=== PATIENT | male | born 2000 | race Caucasian/White ===

== ENCOUNTER 2020-11-01 18:48 | Emergency (ER) | payer OTHER, SELFPAY ==
--- NOTE | ~2020-11-01 | XR_ITS ---
EXAMINATION: RIGHT ANKLE 3 VIEWS CLINICAL INFORMATION: Right ankle pain following rolling injury. COMPARISON: None. TECHNIQUE: AP, lateral, oblique views of the right ankle were obtained. FINDINGS: There are no fractures or dislocations. There is mild soft tissue swelling overlying the lateral malleolus. No ankle joint effusion is identified. XR/XR ankle RT 2V IMPRESSION: Mild soft tissue swelling without fracture or dislocation.
[2020-11-01 20:38] VITALS: BP 133/60; PULSE 76; RESP 18; TEMP 36.4; O2SAT 98; BMI 28.7
[2020-11-01 22:04] VITALS: BP 124/43; PULSE 65; RESP 18; O2SAT 99
--- NOTE | 2020-11-01 22:46 | ED_ITS ---
HPI - Extremity Injury (Lower) General Chief Complaint: Extremity Injury, Lower Stated Complaint: ankle pain Source: patient Mode of arrival: ambulatory Limitations: no limitations History of Present Illness HPI Narrative: 19-year-old male with no significant past medical history presents with right ankle pain and swelling after rolling it yesterday while at work. He has been applying ice and use some Motrin with poor effect, states the swelling and the pain is prevented him from walking properly. Does not describe any other injury and has no other complaint. MD complaint: ankle injury Onset (ago): day(s) (1) Type of Injury: inversion Place: work Severity: moderate Severity scale (1-10): 6 Relieving factors: rest Exacerbating factors: weight bearing, movement and palpation Associated symptoms: swelling and able to partially bear weight Other symptoms: none Treatments prior to arrival: cold therapy and NSAIDS Related Data Previous Rx's Medication Instructions Recorded ibuprofen 600 mg PO Q6H PRN #60 tab 11/01/20 tramadol 50 mg PO Q8H PRN #7 tab 11/01/20 Allergies Allergy/AdvReac Type Severity Reaction Status Date / Time No Known Allergies Allergy Verified 11/01/20 20:37 Review of Systems Review of Systems: Constitutional: No Fever, No Chills ENT/Mouth: No Ear Pain, No Hoarseness, No sore throat Eyes: No Eye Pain, No Swelling, No Redness, No Foreign Body Cardiovascular: No Chest Pain, No SOB Respiratory: No Cough, No Dyspnea Gastrointestinal: No Nausea, No Vomiting, No Diarrhea, No abdominal Pain Genitourinary: No Dysuria, No Hematuria Musculoskeletal: positive right ankle swelling and pain, No Myalgias Skin: No Skin lacerations, No rash Neuro: No Weakness, No Numbness, No Paresthesias, No Loss of Consciousness, No Dizziness, No Headache Psych: No Anxiety/Panic, No Depression Heme/Lymph: no easy bruising, no Lymphadenopathy Endocrine: No Polyuria, No Polydipsia Yes all other systems are reviewed and are negative [facility]LY [facility] Past Medical History Attestation statement: The following information was validated with the patient. Source: old records reviewed Medical History Hernia Social History Social History Advance Directives: No Physical Exam Vital Signs: Vital Signs: Last Vital Signs Temp 97.6 F 11/01/20 20:38 Pulse 65 11/01/20 22:04 Resp 18 11/01/20 22:04 BP 124/43 L 11/01/20 22:04 Pulse Ox 99 11/01/20 22:04 Body Mass Index 28.7 Appearance: Alert. Oriented X3. No acute distress. Eyes: Pupils equal, round and reactive to light. ENT: Pharynx normal. Neck: Normal inspection. Neck supple. CVS: Normal heart rate and rhythm. Pulses normal. Respiratory: No respiratory distress. Breath sounds normal. Abdomen: Soft and nontender. Skin: Skin warm and dry. Normal skin color. Normal skin turgor. Extremities: Right ankle Swelling and bruising noted to the right lateral malleolar process extending to the dorsal aspect of the foot. Has limited range of motion with flexion, extension, internal and external rotation. Full range of motion to the other extremity. Neuro: No motor deficit. No sensory deficit. Cranial nerves 2-12 intact Course Course Course Narrative: 19-year-old male with no significant past medical history presents with a suspected sprained ankle after work related injury yesterday. X-rays are negative for acute findings fracture or effusion. His limited range of motion is suspicious for grade 2 or 3 ankle sprain. Will apply Chidi wrap, air brace and provide a postop shoe as he is unable to get his foot into his shoe because of swelling and pain. Will provide crutches and crutch walking instructions. Patient does understand as the pain does not alleviate that he should follow up with primary care physician and Orthopedics. Will provide a prescription for ibuprofen and tramadol. Patient does understand tramadol is a narcotic and has high risk for addiction and abuse. Patient verbalized understanding of and agrees to plan of care discharge home. MDM - Extremity Injury (Lower) Differential Diagnosis Differential diagnosis: Likely ankle sprain and strain Medical Records Attestation: I reviewed the patient's medical records. Imaging Data Right ankle x-ray: Attestation: I personally reviewed and interpreted this imaging study as follows: Radiologist's impression: EXAMINATION: RIGHT ANKLE 3 VIEWS CLINICAL INFORMATION: Right ankle pain following rolling injury. COMPARISON: None. TECHNIQUE: AP, lateral, oblique views of the right ankle were obtained. FINDINGS: There are no fractures or dislocations. There is mild soft tissue swelling overlying the lateral malleolus. No ankle joint effusion is identified. XR/XR ankle RT 2V IMPRESSION: Mild soft tissue swelling without fracture or dislocation. Discharge Plan Discharge Clinical Impression: Ankle sprain and strain Patient Disposition: Home, Self-Care Instructions: Ankle Sprain (ED), Crutch Instructions (ED), Ankle Stirrup Splint (ED) Additional Instructions: You were evaluated for right ankle pain. X-rays negative for acute fracture however there is significant swelling consistent with ankle sprain. This is suspected to be a grade 2 or 3 strain. Please follow-up with orthopedics if pain persists over the next few days. Use Chidi wrap, and crutches for ambulation. Take ibuprofen 600 mg as needed for pain. Use ice and elevation to help reduce swelling. We prescribed tramadol for pain management, this medication is narcotic and has high risk for addiction and abuse. Do not drive or operate machinery while taking this medication. Thank you for choosing this emergency department for evaluation. Please follow-up with primary care physician as needed. Return to the emergency department for any new, concerning, or worsening symptoms. Prescriptions: New tramadol 50 mg tablet 50 mg PO Q8H PRN (Reason: pain) Qty: 7 RF: 0 ibuprofen 600 mg tablet 600 mg PO Q6H PRN (Reason: pain) Qty: 60 RF: 0 Stand Alone Forms: Work/School Release Interventions: ED Discharge Assessment Last Done: 11/01/20 23:26 Discharge Date/Time: 11/01/20 23:26
[2020-11-01] MEDS: Ibuprofen 600 MG TABLET PO (23:31)
== END 2020-11-01 23:26 | disposition home or self-care (01) ==
PROVIDERS: Emergency Provider Student in an Organized Health Care Education/Training Program
DX: S93.401A Sprain of unspecified ligament of right ankle, initial encounter (principal); S96.911A Strain of unspecified muscle and tendon at ankle and foot level, right foot, initial encounter; X50.1XXA Overexertion from prolonged static or awkward postures, initial encounter; Y93.9 Activity, unspecified; Y92.9 Unspecified place or not applicable; Y99.0 Civilian activity done for income or pay
CPT/HCPCS: 73600; 99283